=== PATIENT | female | born 1975 | race Caucasian/White ===

== ENCOUNTER 2020-02-17 15:23 | Outpatient (REF) | payer BC, SELFPAY ==
[2020-02-17 16:21] LABS: Cholesterol 280 mg/dL; HDL Cholesterol 83 mg/dL; LDL Cholesterol Calculated 186 mg/dl; Triglycerides 56 mg/dL
[2020-02-18 18:43] LABS: LDL Cholesterol Direct 196 mg/dL (<100)
== END 2020-02-17 15:24 | disposition home or self-care (01) ==
LOC: HO.LAB 15:23
PROVIDERS: PCP Internal Medicine; Visit Provider Internal Medicine
DX: E78.5 Hyperlipidemia, unspecified (principal)
CPT/HCPCS: 80061; 83721

== ENCOUNTER → 2020-03-02 09:39 | Outpatient (BNVA) | payer BC, SELFPAY | PROVIDERS: PCP Internal Medicine; Referring Provider Internal Medicine; Visit Provider Internal Medicine | DX: Z76.89 Persons encountering health services in other specified circumstances (principal) ==

== ENCOUNTER 2020-05-29 15:02 | Outpatient (REF) | payer BC, SELFPAY ==
[2020-05-29 17:15] LABS: Cholesterol 181 mg/dL; HDL Cholesterol 68 mg/dL; LDL Cholesterol Calculated 103 mg/dl; Triglycerides 53 mg/dL
[2020-05-30 05:51] LABS: LDL Cholesterol Direct 95 mg/dL (<100)
== END 2020-05-29 15:03 | disposition home or self-care (01) ==
LOC: HO.HMGCLDS 15:02
PROVIDERS: PCP Internal Medicine; Visit Provider Internal Medicine
DX: E78.5 Hyperlipidemia, unspecified (principal)
CPT/HCPCS: 36415; 80061; 83721

== ENCOUNTER → 2020-06-01 09:30 | Outpatient (BNVA) | payer BC, SELFPAY | PROVIDERS: PCP Internal Medicine; Visit Provider Internal Medicine ==

== ENCOUNTER → 2020-06-05 11:26 | Outpatient (BNVA) | payer BC, SELFPAY | PROVIDERS: PCP Internal Medicine; Visit Provider Internal Medicine Gastroenterology ==

== ENCOUNTER → 2020-07-22 07:36 | Outpatient (BNVA) | payer BC, SELFPAY | PROVIDERS: PCP Internal Medicine; Visit Provider Internal Medicine ==

== ENCOUNTER 2020-11-24 06:48 | Outpatient (REF) | payer BC, SELFPAY ==
[2020-11-24 11:46] LABS: Cholesterol 164 mg/dL; HDL Cholesterol 71 mg/dL; LDL Cholesterol Calculated 84 mg/dl; Triglycerides 46 mg/dL
[2020-11-25 14:01] LABS: LDL Cholesterol Direct 71 mg/dL (<100)
== END 2020-11-24 06:49 | disposition home or self-care (01) ==
LOC: HO.HMGCLDS 06:48
PROVIDERS: PCP Internal Medicine; Visit Provider Internal Medicine
DX: E78.5 Hyperlipidemia, unspecified (principal)
CPT/HCPCS: 36415; 80061; 83721

== ENCOUNTER → 2020-11-25 07:24 | Outpatient (BNVA) | payer BC, SELFPAY | PROVIDERS: PCP Internal Medicine; Visit Provider Internal Medicine ==

== ENCOUNTER 2020-12-04 14:52 | Outpatient (REF) | payer BC, SELFPAY ==
[2020-12-04 15:19] LABS: MANUAL DIFF FLAG NO
[2020-12-04 15:27] LABS: Basophils Absolute Auto 0.1 X10*3/uL (0.0-0.2); Basophils Percent Auto 0.8 % (0-2); Eosinophils Absolute Auto 0.1 X10*3/uL (0.0-0.4); Eosinophils Percent Auto 1.7 % (0-4); Hematocrit 39.1 % (37-47); Imm Gran Abs Auto 0.03 X10*3/uL (0.00-0.03); Imm Gran Pct Auto 0.4 % (0.0-0.4); Lymphocytes Absolute Auto 1.7 X10*3/uL (1.2-4.9); Mean Corpuscular HGB Conc 33.2 g/dl (31.0-35.0); Mean Corpuscular Hemoglobin 32.5 pg (27.0-33.0); Mean Corpuscular Volume 97.8 fL (80-98); Mean Platelet Volume 9.2 fL (9.4-12.3); Monocytes Absolute Auto 0.8 X10*3/uL (0.1-1.2); Monocytes Percent Auto 10.5 % (2-11); Neutrophils Absolute Auto 4.9 X10*3/uL (2.0-8.3); Neutrophils Percent Auto 64.6 % (45-73); Platelet Count 312 X10*3/uL (160-400); White Blood Count 7.5 X10*3/uL (4.8-10.8)
[2020-12-04 15:36] LABS: Prothrombin Time 11.3 SEC (9.9-13.0)
[2020-12-04 15:42] LABS: Alanine Aminotransferase 35 U/L (0-31); Albumin Level 4.4 g/dL (3.5-5.0); Alkaline Phosphatase 128 U/L (39-117); Anion Gap 13 (12-20); Aspartate Amino Transferase 27 U/L (5-31); Bilirubin Total 0.6 mg/dL (0.0-1.0); Blood Urea Nitrogen 10 mg/dL (9-16); Calcium 9.4 mg/dL (8.4-10.2); Carbon Dioxide 23 mmol/L (22-29); Chloride 106 mmol/L (96-108); Estimated Glomerular Filt Rate > 60; Glucose Random 86 mg/dL (60-115); Potassium 4.3 mmol/L (3.3-5.1); Sodium 138 mmol/L (135-145); Total Protein 7.6 g/dL (6.5-8.0)
[2020-12-04 16:02] LABS: Vitamin D 25-OH Total 18.1 ng/mL (>30)
[2020-12-11 01:01] LABS: Beta-Gamma Tocopherol <1.0 mg/L (<=4.3)
[2020-12-11 11:20] LABS: Vitamin A 28 mcg/dL (38-98)
[2020-12-12 23:46] LABS: Vitamin K1 881 pg/mL (130-1500)
== END 2020-12-04 14:53 | disposition home or self-care (01) ==
LOC: HO.LAB 14:52
PROVIDERS: PCP Internal Medicine; Visit Provider Internal Medicine Gastroenterology
DX: K74.3 Primary biliary cirrhosis (principal)
CPT/HCPCS: 36415; 80053; 82306; 84446; 84590; 84597; 85025; 85610

== ENCOUNTER 2021-09-03 15:41 | Outpatient (REF) | payer BC, SELFPAY | END 2021-09-03 15:42 | disposition home or self-care (01) | LOC: HO.LNP 15:41 | PROVIDERS: Visit Provider Internal Medicine | DX: N30.90 Cystitis, unspecified without hematuria (principal) | CPT/HCPCS: 87086 ==

== ENCOUNTER 2021-09-17 11:00 | Outpatient (REF) | payer BC, SELFPAY ==
[2021-09-17 12:00] LABS: MANUAL DIFF FLAG NO
[2021-09-17 12:07] LABS: Basophils Percent Auto 0.8 % (0-2); Eosinophils Absolute Auto 0.2 X10*3/uL (0.0-0.4); Eosinophils Percent Auto 3.2 % (0-4); Hematocrit 38.8 % (37.0-47.0); Hemoglobin 12.8 g/dl (12.0-16.0); Imm Gran Abs Auto 0.01 X10*3/uL (0.00-0.03); Imm Gran Pct Auto 0.2 % (0.0-0.4); Lymphocytes Absolute Auto 1.3 X10*3/uL (1.2-4.9); Lymphocytes Percent Auto 25.8 % (20-40); Mean Corpuscular Hemoglobin 32.4 pg (27.0-33.0); Mean Corpuscular Volume 98.2 fL (80.0-98.0); Mean Platelet Volume 9.8 fL (9.4-12.3); Monocytes Absolute Auto 0.4 X10*3/uL (0.1-1.2); Monocytes Percent Auto 8.5 % (2-11); Neutrophils Absolute Auto 3.1 x10*3/uL (2.0-8.3); Neutrophils Percent Auto 61.5 % (45-73); Platelet Count 259 X10*3/uL (160-400); Red Blood Count 3.95 X10*6/uL (4.20-5.50); Red Cell Distribution Width 12.8 % (11.0-16.0)
[2021-09-17 12:45] LABS: TSH reflex Free T4 0.69 uIU/mL (0.32-4.0)
[2021-09-17 12:47] LABS: Alanine Aminotransferase 138 U/L (0-31); Albumin Level 4.2 g/dL (3.5-5.0); Alkaline Phosphatase 158 U/L (39-117); Anion Gap 13 (12-20); Aspartate Amino Transferase 170 U/L (5-31); Bilirubin Total 0.5 mg/dL (0.0-1.0); Blood Urea Nitrogen 9 mg/dL (9-16); Calcium 8.5 mg/dL (8.4-10.2); Carbon Dioxide 25 mmol/L (22-29); Chloride 104 mmol/L (96-108); Cholesterol 345 mg/dL; Estimated Glomerular Filt Rate > 60; Glucose Fasting 80 mg/dL (60-99); HDL Cholesterol 115 mg/dL; LDL Cholesterol Calculated 221 mg/dl; Potassium 4.4 mmol/L (3.3-5.1); Sodium 138 mmol/L (135-145); Total Protein 7.5 g/dL (6.5-8.0); Triglycerides 46 mg/dL
[2021-09-17 12:50] LABS: Vitamin B12 275 pg/mL (200-900)
[2021-09-22 15:12] LABS: Vitamin D 25-OH, D2 <4 ng/mL; Vitamin D 25-OH, D3 36 ng/mL; Vitamin D 25-OH, Total 36 ng/mL (30-100)
== END 2021-09-17 11:01 | disposition home or self-care (01) ==
LOC: HO.HMGCLDS 11:00
PROVIDERS: Visit Provider Internal Medicine
DX: E78.9 Disorder of lipoprotein metabolism, unspecified (principal); K74.3 Primary biliary cirrhosis; N30.90 Cystitis, unspecified without hematuria; R00.0 Tachycardia, unspecified; R79.89 Other specified abnormal findings of blood chemistry; Z13.29 Encounter for screening for other suspected endocrine disorder
CPT/HCPCS: 36415; 80053; 80061; 82306; 82607; 84443; 85025

== ENCOUNTER 2023-06-30 12:43 | Outpatient (REF) | payer BC, SELFPAY ==
[2023-06-30 17:15] LABS: Cholesterol 364 mg/dL (<200); HDL Cholesterol 101 mg/dL (>40); LDL Cholesterol Calculated 249 mg/dL (<100); Triglycerides 74 mg/dL (<150)
== END 2023-06-30 12:44 | disposition home or self-care (01) ==
LOC: HO.HMGCLDS 12:43
PROVIDERS: PCP Internal Medicine; Visit Provider Internal Medicine Endocrinology, Diabetes & Metabolism
DX: E78.9 Disorder of lipoprotein metabolism, unspecified (principal)
CPT/HCPCS: 36415; 80061

== ENCOUNTER 2023-07-05 14:58 | Outpatient (AMB) | payer BC, SELFPAY ==
--- NOTE | 2023-07-05 15:08 | A.OFFVIS_ITS ---
Vital Signs 07/05/23 15:10 Height 5 ft 4 in Weight 131 lb 2.801 oz BMI 22.5 BP 158/92 H Blood Pressure Location Rt brachial Position Sitting Pulse 103 H Pulse Source Pulse Oximeter Intake Visit Reasons: Hyperlipidemia Intake Note: Patient present today for Hyperlipidemia follow up visit. Previously seen on 11/25/[address] Alcaraz. Clinical Research Spec Required: No Accompanied by: Self / Same As Patient Allergies No Known Allergies Allergy (Verified 07/05/23 15:11) none Allergy (Unknown, Uncoded 07/05/23 15:11) none HPI Comments Details: 48 YO Female with PMH HLD who is seen in F/U for the same. She was first diagnosed with HLD approximately 10 years ago, but has been on Statins only for the past 3-4 years. She was started on Simvastatin 20 mg PO qHS which she reported being inconsistent with taking, and then was increased to Simvastatin 40 mg PO daily as of March 09 and had been on that for 2 months. After our initial visit there was concern for rhabdomyolysis given her symptoms and elevated CPK. I asked her to stop the Simvastatin at that time. S ymptoms improved, and she was switched to Rosuvastatin. She remained with elevated LDL above goal on Rosuvastatin 20 mg PO daily after 6 months, and was increased to Rosuvastatin 40 mg PO daily as of February 2019. Labs repeated 10/09/2019 reveal persistently increased LDL of 201, with Total Cholesterol 281, Trig 43 and HDL 72. We discussed trialing PCSK9 inhibitor therapy. She was prescribed Praluent, but was unable to afford the copay of $150 a month. She was then started on Rosuvastatin 40 mg PO daily and Zetia 10 mg PO daily. LDL is now <100. She was also found to have elevated LFTs on her initial visit with me. She was referred to GI and had workup which revealed elevated AMA. She also had US which revealed a mass possibly within the pancreatic head, and also another within the liver. She underwent biopsy of the liver which revealed findings consistent with PBC. She was started on Ursodiol TID, and has repeat MRI scheduled to reassess pancreatic mass, which was thought to be a reactive lymph node. She underwent surveillance MRI 02/2019 which revealed persistent precaval lymphadenopathy as well as the 7 mm intrahepatic mass. She has no personal history of pancreatitis or heart disease. She does have a family history of HLD in her father and her brother. Her father had CABG at the age of 70. She has a paternal grandmother with HLD who passed from [place] in her 60's. Brother has no known CAD or pancreatitis. She does have a history of heavy ETOH use. For many years she drank a minimum of 6 beers or a whole bottle of wine per day. She has drastically cut back on the alcohol since our initial visit. She has not had any symptoms of withdrawal. Labs: Laboratory Tests 05/29/20 11/24/20 15:08 07:00 Triglycerides 53 46 Cholesterol 181 D 164 LDL Cholesterol, Calc 84 HDL Cholesterol 68 71 PFSH Medical History Liver mass Primary biliary cholangitis Surgical History Hx of section Hx of appendectomy Family History Father CAD (coronary artery disease) Hyperlipidemia Mother No problems noted. Social History Household Members: Significant Other and Children Housing: House Alcohol intake: current Alcohol intake frequency: a few times a week Alcohol type: wine and hard liquor Patient Tobacco Use Status: Current everyday Tobacco user Cigarettes Per Day: 10 Years Smoked: 25 service: No Current occupational status: employed Cognitive needs: No Hearing needs: No Vision needs: No Physical Exam Vital Signs: Last Vital Signs Pulse 103 H 07/05/23 15:10 BP 158/92 H 07/05/23 15:10 BMI result Body Mass Index 22.5 Assessment & Plan Assessment & Plan (1) HLD (hyperlipidemia): Code(s): E78.5 - Hyperlipidemia, unspecified Category: Medical Plan: This is a 48-year-old white female followed by endocrinology for management of very high cholesterol and LDL suggestive of familial hypercholesterolemia in the setting of primary biliary cirrhosis. I am not sure why the statin and ezetimibe would discontinue the the past but I assume it was because of the markedly elevated liver enzymes. Patient has not been taking the ursodiol regularly as not followed up with Gastroenterology The plan is to have the patient follow up with Gastroenterology. In coordination with Gastroenterology, patient needs to reinitiate if warranted the ursodiol . Once liver enzymes return to near normal and in conjunction with gastroenterology, would reinitiate the statin and ezetimibe at that point. Patient will follow-up after appointment with Gastroenterology Orders: Referrals Gastroenterology Referral K74.3 - Primary biliary cirrhosis Coding Level of Care Code Est Pt Level 3 (48490) Diagnoses HLD (hyperlipidemia) E78.5
[2023-07-05 15:10] VITALS: BP 158/92; PULSE 103; BMI 22.5
== END 2023-07-05 16:04 | disposition home or self-care (01) ==
PROVIDERS: PCP Internal Medicine; Visit Provider Internal Medicine Endocrinology, Diabetes & Metabolism
DX: E78.5 Hyperlipidemia, unspecified (principal)
CPT/HCPCS: 99213

== ENCOUNTER → 2023-07-05 14:58 | Outpatient (BNVA) | payer BC, SELFPAY | PROVIDERS: PCP Internal Medicine; Visit Provider Internal Medicine Endocrinology, Diabetes & Metabolism ==

== ENCOUNTER 2023-10-17 12:51 | Outpatient (AMB) | payer BC, SELFPAY ==
--- NOTE | 2023-10-17 13:05 | MHC.OFFWIV ---
Intake Vital Signs 10/17/23 13:07 Height 5 ft 4 in Weight 136 lb BMI 23.3 BP 144/92 H Blood Pressure Location Lt brachial Position Sitting Pulse 127 H Pulse Source Pulse Oximeter Temp 98.9 F Temp Source Oral Pulse Oximetry (%) 98 Oxygen Delivery Method Room Air Intake Visit Reasons: EP UTI Intake Note: pt c/o urinary frequency and discomfort. Started last Patient Tobacco Use Status: Current everyday Tobacco user Allergies No Known Allergies Allergy (Verified 10/17/23 13:06) Do you need a note to return to daycare/school/sports/work: No HPI HPI Comments History of Present Illness Details 48 y/o female patient who presents to the walk in clinic with c/o urinary symptoms. Pr c/o urinary frequency, dysuria and urgency for few days now. She does also c/o abdominal crapping. Denies vaginal symptoms. Denies hematuria. Denies fevers, chills, nausea or vomiting. PFS Medical History Liver mass Primary biliary cholangitis Surgical History Hx of section Hx of appendectomy Family History Father CAD (coronary artery disease) Hyperlipidemia Mother No problems noted. Social History Household Members: Significant Other and Children Housing: House Alcohol intake: current Alcohol intake frequency: a few times a week Alcohol type: wine and hard liquor Patient Tobacco Use Status: Current everyday Tobacco user Cigarettes Per Day: 10 Years Smoked: 25 service: No Current occupational status: employed Cognitive needs: No Hearing needs: No Vision needs: No Review of Systems Const All systems reviewed & are unremarkable except as noted in HPI and below Physical Exam Vital Signs: Last Vital Signs Temp 98.9 F 10/17/23 13:07 Pulse 127 H 10/17/23 13:07 BP 144/92 H 10/17/23 13:07 Pulse Ox 98 10/17/23 13:07 Oxygen Delivery Method Room Air 10/17/23 13:07 BMI result Body Mass Index 23.3 Const General: comfortable and no acute distress Orientation/consciousness: patient oriented x3 Other: Deferred Pelvic examination General: Yes no CVA tenderness Back/Spine/Pelvis Back: no CVA tenderness Neuro General: patient oriented x3, gait normal and moves all extremities Psych Speech and movement: Normal speech and movement present Results AMB Urinalysis, Automated UA Leukoctes 125 Katarina/uL Last Edit by Ángel Rosales CMA on 10/17/23 13:17 UA Nitrite Positive Last Edit by Ángel Rosales CMA on 10/17/23 13:17 UA Urobilinogen 0.2 mg/dL Last Edit by Ángel Rosales CMA on 10/17/23 13:17 UA Protein 0 mg/dL Last Edit by Ángel Rosales CMA on 10/17/23 13:17 UA pH 8.0 Last Edit by Ángel Rosales CMA on 10/17/23 13:17 UA Blood 25 Kedar/uL Last Edit by Ángel Rosales CMA on 10/17/23 13:17 UA Specific [place] 1.005 Last Edit by Ángel Rosales CMA on 10/17/23 13:17 UA Ketone Negative Last Edit by Ángel Rosales CMA on 10/17/23 13:17 UA Bilirubin 0 mg/dL Last Edit by Ángel Rosales CMA on 10/17/23 13:17 UA Glucose 0 mg/dL Last Edit by Ángel Rosales CMA on 10/17/23 13:17 Results Reviewed Results Reviewed: Laboratory Last Values Urine pH (Auto) 8.0 10/17/23 13:16 Specific [place] (Auto) 1.005 10/17/23 13:16 Urine Protein (Auto) 0 mg/dL 10/17/23 13:16 Glucose (UA)(Auto) 0 mg/dL 10/17/23 13:16 Urine Ketones (Auto) Negative 10/17/23 13:16 Urine Blood (Auto) 25 Kedar/uL 10/17/23 13:16 Urine Nitrite (Auto) Positive 10/17/23 13:16 Urine Bilirubin (Auto) 0 mg/dL 10/17/23 13:16 Urine Urobilinogen (Auto) 0.2 mg/dL 10/17/23 13:16 Leukocyte Esterase (Auto) 125 Katarina/uL 10/17/23 13:16 Assessment & Plan Assessment & Plan (1) Cystitis: Code(s): N30.90 - Cystitis, unspecified without hematuria Plan: Ordered Macrobid Hydrate with plenty of water NSAIDs for abdominal crapping relief. Orders: Orders AMB Urinalysis Automated Today Jean Marie Saez MD Z13.9 - Encounter for screening, unspecified Medications: New nitrofurantoin monohyd/m-cryst 100 mg (Macrobid) must administer with a meal/food 100 mg PO Q12H 14 caps 0RF 7 days Amalia Zuniga NP N30.90 - Cystitis, unspecified without hematuria Coding Level of Care Code Est Pt Level 3 (58672) Diagnoses Cystitis N30.90 Time Spent (min) 15
[2023-10-17 13:07] VITALS: BP 144/92; PULSE 127; TEMP 37.2; O2SAT 98; BMI 23.3
== END 2023-10-17 13:54 | disposition home or self-care (01) ==
PROVIDERS: PCP Internal Medicine; Visit Provider Nurse Practitioner Family
DX: Z13.9 Encounter for screening, unspecified (principal); N30.90 Cystitis, unspecified without hematuria
CPT/HCPCS: 81003; 99213

== ENCOUNTER 2024-08-20 11:14 | Outpatient (AMB) | payer BC, SELFPAY ==
--- NOTE | 2024-08-20 11:29 | AM.OFFWIN_ITS ---
Intake Vital Signs 08/20/24 11:30 Weight 139 lb BP 140/100 H Blood Pressure Location Rt brachial Position Sitting Pulse 111 H Pulse Source Pulse Oximeter Temp 98.5 F Temp Source Oral Pulse Oximetry (%) 98 Oxygen Delivery Method Room Air Intake Visit Reasons: EP-rt side cheek swollen & pain Intake Note: Patient here for right sided face swelling and pain that really started today. Patient Tobacco Use Status: Current everyday Tobacco user Allergies No Known Allergies Allergy (Verified 08/20/24 11:30) Do you need a note to return to daycare/school/sports/work: No HPI HPI Comments History of Present Illness Details History of Present Illness - The patient is a 49-year-old female pr esenting with right sided facial pain and swelling. - Symptoms began on Monday with mild dis comfort in the cheek region, escalating on subsequent days. - By Monday, significant swelling was n oted during work, primarily localized to the parotid gland. - No jaw pain, tooth pain, or lesions we re reported. - Patient experiences dry mouth, possibl y due to obstruction of saliva flow. - Patient is a smoker and currently not on any medications. - She denies fever, chills, dental pain, DEMARCO, ear pain, sore throat, CP, SOB, abd pain, n/v/d. Physical Exam General: Cooperative, healthy appearing, comfortable, no acute distress and well developed Head: Normal to inspection Ears: Hearing grossly normal bilaterally Nose: Normal external nose present Face and sinus: Swelling noted in the area of the right parotid gland on the cheek. TTP of the right side of the face. Mouth and Throat: dental caries noted. No gingivitis noted. Oropharynx is normal with no exudates or erythema noted. Eyes: Appearance normal, both eyes and all related structures Neck: Normal visual inspection and Yes full ROM. No lymphadenopathy noted. Respiratory: Normal respiratory effort and able to speak in complete sentences. Clear to auscultation bilaterally Cardiovascular: Regular rate and rhythm. Normal S1 and S2 Skin: No rashes or lesions noted Patient was informed and verbally consented to the use of an ambient scribe for clinic note documentation during this visit. [facility] Medical History Liver mass Primary biliary cholangitis Surgical History Hx of section Hx of appendectomy Family History Father CAD (coronary artery disease) Hyperlipidemia Mother No problems noted. Social History Household Members: Significant Other and Children Housing: House Alcohol intake: current Alcohol intake frequency: a few times a week Alcohol type: wine and hard liquor Patient Tobacco Use Status: Current everyday Tobacco user Cigarettes Per Day: 10 Years Smoked: 25 service: No Current occupational status: employed Cognitive needs: No Hearing needs: No Vision needs: No Review of Systems Const All systems reviewed & are unremarkable except as noted in HPI and below Physical Exam Vital Signs: Last Vital Signs Temp 98.5 F 08/20/24 11:30 Pulse 111 H 08/20/24 11:30 BP 140/100 H 08/20/24 11:30 Pulse Ox 98 08/20/24 11:30 Oxygen Delivery Method Room Air 08/20/24 11:30 Assessment & Plan Assessment & Plan (1) Parotid gland enlargement: Code(s): K11.1 - Hypertrophy of salivary gland Plan Most likely stone vs infection Plan - Begin antibiotic therapy for potential infection in the parotid gland. - Use sour candies to stimulate salivation and encourage stone expulsion. - Advise regular mouth rinsing post-smoking to improve hygiene. - Apply warm compresses to the affected cheek for symptom relief. - Tylenol or Motrin as needed for pain or fever. - Monitor for worsening symptoms or any new developments that could require further evaluation. Medications: New amoxicillin-pot clavulanate 875-125 mg 1 tab PO Q12H 10 days 20 tabs 0RF Coding Level of Care Code Est Pt Level 3 (37676) Diagnoses Parotid gland enlargement K11.1
[2024-08-20 11:30] VITALS: BP 140/100; PULSE 111; TEMP 36.9; O2SAT 98
== END 2024-08-20 15:59 | disposition home or self-care (01) ==
PROVIDERS: PCP Internal Medicine; Visit Provider Physician Assistant Medical
DX: K11.1 Hypertrophy of salivary gland (principal)

== ENCOUNTER → 2024-08-20 11:14 | Outpatient (BNVA) | payer BC, SELFPAY | PROVIDERS: PCP Internal Medicine; Visit Provider Physician Assistant Medical ==

== ENCOUNTER 2024-10-16 08:02 | Outpatient (REF) | payer BC, SELFPAY | END 2024-10-16 08:03 | disposition home or self-care (01) | LOC: HO.LNP 08:02 | PROVIDERS: PCP Internal Medicine; Visit Provider Physician Assistant Medical | DX: Z13.89 Encounter for screening for other disorder (principal); R30.0 Dysuria; R39.15 Urgency of urination | CPT/HCPCS: 81003; 87086; 87088; 87186 ==

== ENCOUNTER 2024-10-16 08:02 | Outpatient (AMB) | payer BC, SELFPAY ==
[2024-10-16 08:03] VITALS: BP 156/90; PULSE 115; TEMP 37.4; O2SAT 98; BMI 23.9
--- NOTE | 2024-10-16 08:03 | AM.OFFWIN_ITS ---
Intake Vital Signs 10/16/24 08:03 Height 5 ft 4 in Weight 139 lb 4 oz BMI 23.9 BP 156/90 H Blood Pressure Location Rt brachial Position Sitting Pulse 115 H Pulse Source Pulse Oximeter Temp 99.4 F Temp Source Oral Pulse Oximetry (%) 98 Oxygen Delivery Method Room Air Intake Visit Reasons: EP-uti Patient Tobacco Use Status: Current everyday Tobacco user Seam Rubber Required: No Is last menstrual period known: No Post menopausal: Yes Patient : No Allergies No Known Allergies Allergy (Verified 10/16/24 08:10) Do you need a note to return to daycare/school/sports/work: Yes HPI HPI Comments History of Present Illness Details History - The patient is a 49-year-old female pr esenting with urinary symptoms that began yesterday. - Symptoms began with a sensation of an impending urinary tract infection, intensifying by 1:00 AM with burning pain during urination. - Reports urgency but denies hematuria, vaginal discharge, back pain, or nausea. - Took Azo at 1:00 AM to alleviate sympt oms. - She denies fever, chills, CP, SOB, or vaginal bleeding. Physical Exam General: Cooperative, healthy appearing, comfortable, no acute distress and well developed Cardiac: Normal S1 and S2. RRR, no M/R/G noted. Respiratory: Normal respiratory effort and able to speak in complete sentences. Clear to auscultation bilaterally. No w/r/r noted. Skin: No rashes or lesions noted. GI: Normal inspection. Normal BS noted. Soft, non-tender, non-distended. No TTP of all 4 quadrants. No guarding or rebound tenderness noted. Back: Negative CVA bilaterally Patient was informed and verbally consented to the use of an ambient scribe for clinic note documentation during this visit. [facility] Medical History Liver mass Primary biliary cholangitis Surgical History Hx of section Hx of appendectomy Family History Father CAD (coronary artery disease) Hyperlipidemia Mother No problems noted. Social History Household Members: Significant Other and Children Housing: House Alcohol intake: current Alcohol intake frequency: a few times a week Alcohol type: wine and hard liquor Patient Tobacco Use Status: Current everyday Tobacco user Cigarettes Per Day: 10 Years Smoked: 25 Patient : No service: No Current occupational status: employed Cognitive needs: No Hearing needs: No Vision needs: No Review of Systems Const All systems reviewed & are unremarkable except as noted in HPI and below Physical Exam Vital Signs: Last Vital Signs Temp 99.4 F 10/16/24 08:03 Pulse 115 H 10/16/24 08:03 BP 156/90 H 10/16/24 08:03 Pulse Ox 98 10/16/24 08:03 Oxygen Delivery Method Room Air 10/16/24 08:03 BMI result Body Mass Index 23.9 Results AMB Urinalysis, Automated UA Leukoctes 500 Katarina/uL Last Edit by Yesenia Oviedo MA on 10/16/24 08:22 UA Nitrite Positive Last Edit by Yesenia Oviedo MA on 10/16/24 08:22 UA Urobilinogen 4 mg/dL Last Edit by Yesenia Oviedo MA on 10/16/24 08:22 UA Protein 0 mg/dL Last Edit by Yesenia Oviedo MA on 10/16/24 08:22 UA pH 7.0 Last Edit by Yesenia Oviedo MA on 10/16/24 08:22 UA Blood 80 Kedar/uL Last Edit by Yesenia Oviedo MA on 10/16/24 08:22 UA Specific [place] 1.005 Last Edit by Yesenia Oviedo MA on 10/16/24 08:22 UA Ketone Positive Last Edit by Yesenia Oviedo MA on 10/16/24 08:22 UA Bilirubin 2 mg/dL Last Edit by Yesenia Oviedo MA on 10/16/24 08:22 UA Glucose 100 mg/dL Last Edit by Yesenia Oviedo MA on 10/16/24 08:22 Results Reviewed Results Reviewed: Laboratory Last Values Urine pH (Auto) 7.0 10/16/24 08:17 Specific [place] (Auto) 1.005 10/16/24 08:17 Urine Protein (Auto) 0 mg/dL 10/16/24 08:17 Glucose (UA)(Auto) 100 mg/dL 10/16/24 08:17 Urine Ketones (Auto) Positive 10/16/24 08:17 Urine Blood (Auto) 80 Kedar/uL 10/16/24 08:17 Urine Nitrite (Auto) Positive 10/16/24 08:17 Urine Bilirubin (Auto) 2 mg/dL 10/16/24 08:17 Urine Urobilinogen (Auto) 4 mg/dL 10/16/24 08:17 Leukocyte Esterase (Auto) 500 Katarina/uL 10/16/24 08:17 Assessment & Plan Assessment & Plan (1) Dysuria: Code(s): R30.0 - Dysuria Plan Most likely Urinary Tract Infection UA in the office shows 3+leuko, +nitrates, 2+ uro and blood, +ketones, 2+leo Plan - Urine culture to confirm infection and guide antibiotic therapy. - Start basic antibiotic regimen, adjust based on culture results. - Patient declined additional analgesics, will use existing medication at home. - Drink lots of fluids - follow up with PCP Orders: Orders Urine Culture Today N39.0 - Urinary tract infection, site not specified AMB Urinalysis Automated Today Z13.9 - Encounter for screening, unspecified Medications: New cefuroxime axetil 500 mg PO Q12H 10 tabs 0RF Coding Level of Care Code Est Pt Level 3 (19599) Diagnoses Dysuria R30.0
== END 2024-10-16 09:10 | disposition home or self-care (01) ==
PROVIDERS: PCP Internal Medicine; Visit Provider Physician Assistant Medical
DX: Z13.9 Encounter for screening, unspecified (principal); R30.0 Dysuria